=== PATIENT | female | born 1955 | race Caucasian/White ===

== ENCOUNTER 2022-09-23 05:05 | Day surgery (SDC) | payer OTHER ==
[2022-09-22 14:38] VITALS: BMI 45.4
[2022-09-23 09:24] VITALS: TEMP 98
[2022-09-23 13:45] VITALS: BP 90/65; PULSE 66; RESP 15
== END 2022-09-23 11:45 | disposition home or self-care (01) ==
LOC: JASU-ENDO 05:05
PROVIDERS: ATTEND Student in an Organized Health Care Education/Training Program
PROC: 0DB78ZX Excision of Stomach, Pylorus, Via Natural or Artificial Opening Endoscopic, Diagnostic (ICD-10-PCS; 2022-09-23)
PROC: 0DB68ZX Excision of Stomach, Via Natural or Artificial Opening Endoscopic, Diagnostic (ICD-10-PCS; 2022-09-23)
PROC: 0DB48ZX Excision of Esophagogastric Junction, Via Natural or Artificial Opening Endoscopic, Diagnostic (ICD-10-PCS; principal; 2022-09-23 08:00)
DX: K29.50 Unspecified chronic gastritis without bleeding (principal); K31.7 Polyp of stomach and duodenum
CPT/HCPCS: 88305-TC; 88342-TC